=== PATIENT | female | born 2000 | race Two or more races ===

== ENCOUNTER 2024-10-06 15:41 | Emergency (ER) | payer MEDICAID ==
[~2024-10-06] VITALS: Ht 160 cm; Wt 55.8 kg
[2024-10-06 16:16] LABS: PREGNANCY TEST URINE QUAL NEGATIVE (NEGATIVE)
[2024-10-06 20:48] VITALS: BP 103/69; TEMP 98; O2SAT 95
== END 2024-10-06 20:48 | disposition home or self-care (01) ==
LOC: ER 15:44
DX: F10.129 Alcohol abuse with intoxication, unspecified (principal); Z65.8 Other specified problems related to psychosocial circumstances; Z88.0 Allergy status to penicillin; Y90.9 Presence of alcohol in blood, level not specified
CPT/HCPCS: 82962-TC; 84703-TC; 98960